=== PATIENT | female | born 1950 | race Asian ===

== ENCOUNTER 2024-12-19 22:43 | Inpatient (IN) | payer MEDICARE ==
[~2024-12-19] VITALS: Ht 162.6 cm; Wt 60.0 kg
[2024-12-19] MEDS ORDERED: IOHEXOL 350 MG/ML 100 ML VIAL ONE (22:54)
[2024-12-19] MEDS ORDERED: SODIUM CHLORIDE 0.9% 100 ML ONE (22:54)
[2024-12-19 23:06] LABS: BASOPHILS % (AUTO) 1.1 % (0.0-2.0); EOSINOPHILS % (AUTO) 4.7 % (1.0-6.0); HEMATOCRIT 31.7 % (36-46); HEMOGLOBIN 10.5 g/dL (12.0-16.0); LYMPHOCYTES # (AUTO) 2.3 K/uL (1.0-4.8); LYMPHOCYTES % (AUTO) 25.9 % (22.0-44.0); MEAN CORPUSCULAR HEMOGLOBIN 31.8 pg (26.0-34.0); MEAN CORPUSCULAR HGB CONC 33.1 G/dL (31.0-37.0); MEAN CORPUSCULAR VOLUME 96 fL (80-100); MONOCYTES # (AUTO) 0.6 K/uL (0.1-1.0); MONOCYTES % (AUTO) 6.2 % (2.0-9.0); NEUTROPHILS # (AUTO) 5.6 K/uL (1.8-7.7); NEUTROPHILS % (AUTO) 62.1 % (40.0-70.0); PLATELET COUNT (AUTO) 251 K/uL (150-450); RED CELL DISTRIBUTION WIDTH 14.4 % (11.5-14.5); WHITE BLOOD COUNT (AUTO) 9.1 K/uL (4.5-11.0)
[2024-12-19 23:10] LABS: CREATININE 3.15 mg/dL (0.60-1.30)
[2024-12-19 23:14] LABS: BILIRUBIN,TOTAL 0.6 mg/dL (0.1-1.0); TOTAL PROTEIN, SERUM 7.3 g/dL (6.4-8.2)
[2024-12-19 23:24] LABS: CALCIUM, TOTAL 8.9 mg/dL (8.8-10.5)
[2024-12-19 23:25] LABS: PROTHROMBIN TIME 10.2 SEC (9.4-11.6)
[2024-12-19 23:27] LABS: ALCOHOL, BLOOD (SERUM) < 3 mg/dL (0-10)
[2024-12-19 23:37] LABS: HEMOGLOBIN A1C 7.7 % (3.8-5.6)
[2024-12-19 23:50] LABS: TROPONIN I-HIGH SENSITIVITY 525 ng/L (<51)
[2024-12-20] VITALS (8 sets, daily range): BP systolic 117–131; BP diastolic 68–90; PULSE 92–111; RESP 18–20; TEMP 97.7–98.8; O2SAT 96–98
[2024-12-20] MEDS ORDERED: ASPIRIN 81 MG CHEWABLE TABLET PO ONE (00:15)
[2024-12-20] MEDS ORDERED: ONDANSETRON HCL 4 MG/2 ML VIAL IVP PRN (00:15)
[2024-12-20] MEDS ORDERED: HYDROCODONE/ACETAMINOPHEN 5-325 MG TABLET PO PRN (00:15)
[2024-12-20] MEDS ORDERED: ZOLPIDEM TARTRATE 5 MG TABLET PO PRN (00:15)
[2024-12-20] MEDS ORDERED: MORPHINE SULFATE 2 MG/ML SYRINGE IVP PRN (00:15)
[2024-12-20] MEDS ORDERED: MAGNESIUM HYDROXIDE SUSPENSION 30 ML UDCUP PO PRN (00:15)
[2024-12-20] MEDS ORDERED: ACETAMINOPHEN 325 MG TABLET PO PRN (00:15)
[2024-12-20 01:39] LABS: TROPONIN I-HIGH SENSITIVITY 459 ng/L (<51)
[2024-12-20] MEDS: HEPARIN SODIUM 25000 UNITS/D5W 250 ML IV PRN (04:22)
[2024-12-20 05:22] LABS: TROPONIN I-HIGH SENSITIVITY 559 ng/L (<51)
[2024-12-20 05:55] LABS: GLUCOMETER DEV NAME(LOC) 5N.1D; GLUCOSE,POINT OF CARE 177 MG/DL (70-110)
[2024-12-20] MEDS ORDERED: HEPARIN SODIUM,PORCINE 5,000 UNITS/ML VIAL SQ SCH (08:00)
[2024-12-20] MEDS: PANTOPRAZOLE SODIUM 40 MG DR TABLET PO SCH (08:45)
[2024-12-20] MEDS: BUMETANIDE 0.25 MG/ML 4 ML VIAL IVP ONE (08:45)
[2024-12-20] MEDS: DOCUSATE SODIUM 100 MG CAPSULE PO SCH (08:45)
[2024-12-20 08:59] LABS: BASOPHILS % (AUTO) 0.9 % (0.0-2.0); EOSINOPHILS % (AUTO) 0.4 % (1.0-6.0); HEMATOCRIT 34.3 % (36-46); HEMOGLOBIN 11.4 g/dL (12.0-16.0); LYMPHOCYTES # (AUTO) 1.7 K/uL (1.0-4.8); LYMPHOCYTES % (AUTO) 18.3 % (22.0-44.0); MEAN CORPUSCULAR HGB CONC 33.1 G/dL (31.0-37.0); MEAN CORPUSCULAR VOLUME 97 fL (80-100); MONOCYTES # (AUTO) 0.6 K/uL (0.1-1.0); MONOCYTES % (AUTO) 6.1 % (2.0-9.0); NEUTROPHILS % (AUTO) 74.3 % (40.0-70.0); PLATELET COUNT (AUTO) 276 K/uL (150-450); RED BLOOD CELL COUNT(AUTO) 3.55 MIL/uL (4.00-5.20); RED CELL DISTRIBUTION WIDTH 14.6 % (11.5-14.5); WHITE BLOOD COUNT (AUTO) 9.5 K/uL (4.5-11.0)
[2024-12-20 09:13] LABS: CALCIUM, TOTAL 9.5 mg/dL (8.8-10.5); CREATININE 2.96 mg/dL (0.60-1.30); POTASSIUM 4.2 mmol/L (3.5-5.1)
[2024-12-20 11:45] LABS: GLUCOMETER DEV NAME(LOC) 5N.1D; GLUCOSE,POINT OF CARE 164 MG/DL (70-110)
[2024-12-20] MEDS: SODIUM BICARBONATE 650 MG TABLET PO SCH (14:27)
[2024-12-20] MEDS: BISACODYL 10 MG RECTAL RECTAL SUPPOSITORY PR PRN (16:09)
[2024-12-20] MEDS: INSULIN LISPRO 100 UNITS/ML SQ PRN (16:12)
[2024-12-20] MEDS ORDERED: DEXTROSE 50%-WATER 25 GM/50 ML SYRINGE IVP PRN (16:15)
[2024-12-20] MEDS: NITROGLYCERIN 0.4 MG SUBLINGUAL TABLET #25 SL PRN (16:18)
[2024-12-20] MEDS: MINERAL OIL 133 ML ENEMA PR ONE (17:02)
[2024-12-20 17:30] LABS: GLUCOMETER DEV NAME(LOC) 5N.1D; GLUCOSE,POINT OF CARE 396 MG/DL (70-110)
[2024-12-20 17:45] LABS: TROPONIN I-HIGH SENSITIVITY 1747 ng/L (<51)
[2024-12-20] MEDS ORDERED: HEPARIN SODIUM,PORCINE 5,000 UNITS/ML VIAL IVP PRN (19:00)
[2024-12-20] MEDS: HEPARIN SODIUM,PORCINE 5,000 UNITS/ML VIAL IVP PRN (19:01)
[2024-12-20] MEDS: ATORVASTATIN CALCIUM 20 MG TABLET PO SCH (21:25)
[2024-12-21 03:31] VITALS: BP 116/69; PULSE 100; RESP 18; TEMP 98.4; O2SAT 96
[2024-12-21 07:17] LABS: BASOPHILS % (AUTO) 0.6 % (0.0-2.0); EOSINOPHILS % (AUTO) 1.1 % (1.0-6.0); HEMATOCRIT 31.9 % (36-46); HEMOGLOBIN 10.6 g/dL (12.0-16.0); LYMPHOCYTES # (AUTO) 2.3 K/uL (1.0-4.8); LYMPHOCYTES % (AUTO) 24.6 % (22.0-44.0); MEAN CORPUSCULAR HEMOGLOBIN 31.8 pg (26.0-34.0); MEAN CORPUSCULAR HGB CONC 33.1 G/dL (31.0-37.0); MEAN CORPUSCULAR VOLUME 96 fL (80-100); MONOCYTES # (AUTO) 0.8 K/uL (0.1-1.0); MONOCYTES % (AUTO) 8.7 % (2.0-9.0); NEUTROPHILS # (AUTO) 5.9 K/uL (1.8-7.7); PLATELET COUNT (AUTO) 234 K/uL (150-450); RED BLOOD CELL COUNT(AUTO) 3.32 MIL/uL (4.00-5.20); RED CELL DISTRIBUTION WIDTH 14.5 % (11.5-14.5); WHITE BLOOD COUNT (AUTO) 9.2 K/uL (4.5-11.0)
[2024-12-21 07:33] VITALS: BP 120/65; PULSE 99; RESP 18; TEMP 98.2; O2SAT 97
[2024-12-21 07:56] LABS: ANION GAP 10 mmol/L (8-16); CALCIUM, TOTAL 8.9 mg/dL (8.8-10.5); CARBON DIOXIDE 23 mmol/L (22-29); CHLORIDE 101 mmol/L (98-107); CHOL/HDL RATIO 1.7 (3.9-5.7); CHOLESTEROL 113 mg/dL (131-200); GLOMERULAR FILTR. RATE CALC 14 mL/min (>60); GLUCOSE,RANDOM 144 mg/dL (70-110); HDL CHOLESTEROL 67 mg/dL (40-60); LDL CHOL (CALC.) 36 mg/dL (0-130); POTASSIUM 4.1 mmol/L (3.5-5.1); SODIUM SERUM 134 mmol/L (136-145); THYROID STIMULATING HORMONE 0.81 uIU/mL (0.36-3.74); TRIGLYCERIDES 52 mg/dL (15-150); UREA NITROGEN, BLOOD 59 mg/dL (7-18)
[2024-12-21 07:59] LABS: TROPONIN I-HIGH SENSITIVITY 3459 ng/L (<51)
[2024-12-21] MEDS: FUROSEMIDE 20 MG TABLET PO SCH (08:44)
[2024-12-21] MEDS: HEPARIN SODIUM 25000 UNITS/D5W 250 ML IV PRN (10:35)
[2024-12-21 10:59] VITALS: BP 120/73; PULSE 110; RESP 20; TEMP 98.4; O2SAT 96
[2024-12-21] MEDS ORDERED: FUROSEMIDE 40 MG/4 ML VIAL ONE (12:25)
[2024-12-21] MEDS ORDERED: FUROSEMIDE 40 MG/4 ML VIAL IVP ONE (12:45)
[2024-12-21 13:03] LABS: ABG A-A DIFF O2 576.4 mmHg (10-20.0); ABG CARBOXYHEMOGLOBIN 0.6 % (0.5-1.5); ABG HCO3 24.3 mmol/L (21.0-28.0); ABG METHEMOGLOBIN 0.7 % (0.0-1.5); ABG OXYGEN CONTENT 19.2 mL/dL (15.0-23.0); ABG OXYGEN SATURATION 98.4 % (94.0-98.0); ABG OXYHEMOGLOBIN 97.1 % (94.0-98.0); ABG PCO2 33 mmHg (32.0-45.0); ABG PH 7.458 (7.350-7.450); ALLEN TEST, BLOOD GAS Positive; O2 DEVICE,BLOOD GAS NON REBREATHER (ROOM AIR); PO2, ARTERIAL BG 103.4 mmHg (83.0-108.0); SITE, BLOOD GAS LFT BRACHIAL; SOURCE, BLOOD GAS ARTERIAL; TEMPERATURE, FAHRENHEIT, BG 98.8 FAHREN (96.0-98.6)
[2024-12-21] MEDS: SODIUM CHLORIDE 0.45% IV ONE (13:07)
[2024-12-21] MEDS: SODIUM BICARBONATE IV ONE (13:07)
[2024-12-21] MEDS ORDERED: NITROGLYCERIN 50 MG/D5% WATER 250 ML ONE (13:53)
[2024-12-21] MEDS ORDERED: VERAPAMIL HCL 2.5 MG/ML 2 ML VIAL ONE (13:53)
[2024-12-21] MEDS ORDERED: SODIUM BICARBONATE 50 MEQ/50 ML VIAL ONE (13:53)
[2024-12-21] MEDS ORDERED: IOHEXOL 300 MG/ML 100 ML VIAL ONE (13:53)
[2024-12-21] MEDS ORDERED: HEPARIN SODIUM 1000 UNITS/NS 1,000 ML ONE (13:53)
[2024-12-21] MEDS ORDERED: LIDOCAINE/PF 1% 30 ML VIAL ONE (13:53)
[2024-12-21] MEDS: FUROSEMIDE 40 MG/4 ML VIAL IVP ONE (13:57)
[2024-12-21] MEDS ORDERED: FentaNYL CITRATE PF 100 MCG/2 ML VIAL ONE (14:39)
[2024-12-21] MEDS ORDERED: MIDAZOLAM HCL 2 MG/2 ML VIAL ONE (14:39)
[2024-12-21] MEDS: FentaNYL CITRATE PF 100 MCG/2 ML VIAL IVP ONE (15:07)
[2024-12-21] MEDS: VERAPAMIL HCL 2.5 MG/ML 2 ML VIAL IARTER ONE (15:07)
[2024-12-21] MEDS: LIDOCAINE 1% 30 ML/SOD BICARB 8.4% 4 ML SQ ONE (15:08)
[2024-12-21] MEDS: IOHEXOL 300 MG/ML 100 ML VIAL ICOR ONE (15:09)
[2024-12-21] MEDS: NITROGLYCERIN/D5W 50 MG/250 ML IV BOTTLE IARTER ONE (15:12)
[2024-12-21] MEDS: HEPARIN SODIUM,PORCINE 1,000 UNITS/ML 10 ML VIAL IARTER ONE (15:14)
[2024-12-21] MEDS: SODIUM CHLORIDE 0.9% 500 ML IV ONE (15:15)
[2024-12-21] MEDS: HEPARIN SODIUM 2,000 UNITS in HEPARIN SODIUM 1000 UNITS/NS 1,000 ML IARTER ONE (15:16)
[2024-12-21 16:06] LABS: GLUCOMETER DEV NAME(LOC) 5N.2C; GLUCOSE,POINT OF CARE 161 MG/DL (70-110)
[2024-12-21 16:06] LABS: GLUCOMETER DEV NAME(LOC) 5N.2C; GLUCOSE,POINT OF CARE 168 MG/DL (70-110)
[2024-12-21 16:45] LABS: GLUCOMETER DEV NAME(LOC) 5S.2D; GLUCOSE,POINT OF CARE 362 MG/DL (70-110)
[2024-12-21] MEDS: BUMETANIDE 0.25 MG/ML 4 ML VIAL IVP SCH (20:17)
[2024-12-21 20:50] VITALS: PULSE 113; RESP 26; O2SAT 97
[2024-12-21 22:30] VITALS: PULSE 119; RESP 28; O2SAT 98
[2024-12-22 06:50] VITALS: PULSE 98; RESP 18; O2SAT 100
[2024-12-22 09:09] LABS: ANION GAP 11 mmol/L (8-16); CALCIUM, TOTAL 9.2 mg/dL (8.8-10.5); CARBON DIOXIDE 23 mmol/L (22-29); CHLORIDE 99 mmol/L (98-107); CREATININE 4.25 mg/dL (0.60-1.30); GLOMERULAR FILTR. RATE CALC 10 mL/min (>60); GLUCOSE,RANDOM 215 mg/dL (70-110); POTASSIUM 4.4 mmol/L (3.5-5.1); SODIUM SERUM 133 mmol/L (136-145); UREA NITROGEN, BLOOD 68 mg/dL (7-18)
[2024-12-22 09:22] LABS: TROPONIN I-HIGH SENSITIVITY 2964 ng/L (<51)
[2024-12-22 10:00] VITALS: PULSE 102; RESP 20; O2SAT 95
[2024-12-22] MEDS: BUMETANIDE 0.25 MG/ML 4 ML VIAL IVP SCH (10:48)
[2024-12-22 11:59] LABS: ABG A-A DIFF O2 199.3 mmHg (10-20.0); ABG BASE EXCESS -4.6 mmol/L (-2.0-3.0); ABG CARBOXYHEMOGLOBIN 0.3 % (0.5-1.5); ABG HCO3 21.4 mmol/L (21.0-28.0); ABG METHEMOGLOBIN 0.8 % (0.0-1.5); ABG OXYGEN CONTENT 13.2 mL/dL (15.0-23.0); ABG OXYGEN SATURATION 89.4 % (94.0-98.0); ABG OXYHEMOGLOBIN 88.4 % (94.0-98.0); ABG PCO2 27 mmHg (32.0-45.0); ABG PH 7.473 (7.350-7.450); ABG TOTAL HEMOGLOBIN 10.6 G/dL (12.0-16.0); ALLEN TEST, BLOOD GAS Positive; O2 DEVICE,BLOOD GAS CANNULA (ROOM AIR); PO2, ARTERIAL BG 55.4 mmHg (83.0-108.0); SITE, BLOOD GAS RT RADIAL; SOURCE, BLOOD GAS ARTERIAL; TEMPERATURE, FAHRENHEIT, BG 98.6 FAHREN (96.0-98.6)
[2024-12-22 13:05] VITALS: BP 117/82; PULSE 111; RESP 24; TEMP 98.4; O2SAT 90
[2024-12-22 13:30] VITALS: PULSE 103; RESP 24; O2SAT 96
[2024-12-22 14:01] LABS: GLUCOMETER DEV NAME(LOC) 5S.2D; GLUCOSE,POINT OF CARE 212 MG/DL (70-110)
[2024-12-22 14:05] VITALS: O2SAT 95
[2024-12-22 16:44] VITALS: BP 119/78; PULSE 106; RESP 22; TEMP 97.5; O2SAT 97
[2024-12-22 19:46] LABS: GLUCOMETER DEV NAME(LOC) 5S.2D; GLUCOSE,POINT OF CARE 212 MG/DL (70-110)
== END 2024-12-22 20:02 | disposition short-term general hospital (02) | DRG 280 ==
LOC: EMS 22:43 → EDH 12-20 00:02 → 5S 12-20 01:35 → ICUN 12-21 16:35 → 5N 12-22 12:40
PROVIDERS: ADMIT Internal Medicine; ATTEND Internal Medicine
PROC: 5A09357 Assistance with Respiratory Ventilation, Less than 24 Consecutive Hours, Continuous Positive Airway Pressure (ICD-10-PCS; principal; 2024-12-21)
PROC: 4A023N7 Measurement of Cardiac Sampling and Pressure, Left Heart, Percutaneous Approach (ICD-10-PCS; 2024-12-21)
PROC: B2111ZZ Fluoroscopy of Multiple Coronary Arteries using Low Osmolar Contrast (ICD-10-PCS; 2024-12-21)
PROC: 5A09357 Assistance with Respiratory Ventilation, Less than 24 Consecutive Hours, Continuous Positive Airway Pressure (ICD-10-PCS; 2024-12-22)
DX: I21.4 Non-ST elevation (NSTEMI) myocardial infarction (principal); I50.23 Acute on chronic systolic (congestive) heart failure; J96.01 Acute respiratory failure with hypoxia; I13.0 Hypertensive heart and chronic kidney disease with heart failure and stage 1 through stage 4 chronic kidney disease, or unspecified chronic kidney disease; G81.90 Hemiplegia, unspecified affecting unspecified side; E87.20 Acidosis, unspecified; N18.5 Chronic kidney disease, stage 5; N17.9 Acute kidney failure, unspecified; D64.9 Anemia, unspecified; D63.1 Anemia in chronic kidney disease; F32.A Depression, unspecified; I08.0 Rheumatic disorders of both mitral and aortic valves; E11.51 Type 2 diabetes mellitus with diabetic peripheral angiopathy without gangrene; E11.22 Type 2 diabetes mellitus with diabetic chronic kidney disease; I69.331 Monoplegia of upper limb following cerebral infarction affecting right dominant side; I65.22 Occlusion and stenosis of left carotid artery; I25.2 Old myocardial infarction; E78.5 Hyperlipidemia, unspecified; E79.0 Hyperuricemia without signs of inflammatory arthritis and tophaceous disease; I25.5 Ischemic cardiomyopathy; I25.10 Atherosclerotic heart disease of native coronary artery without angina pectoris; Z79.899 Other long term (current) drug therapy; Z88.6 Allergy status to analgesic agent; Z82.3 Family history of stroke; Z87.442 Personal history of urinary calculi; Z88.0 Allergy status to penicillin
CPT/HCPCS: 36600; 70496; 70498; 70551; 71045; 71250; 74018; 80048; 80053; 80061; 82805; 82948; 82962; 83036; 83735; 83880; 84443; 84484; 85025; 85610; 85730; 86850; 86900; 86901; 92610; 93005; 93306; 93880; 94660; 99291; G0378; G0480; J1644; J1940; J2250; J3010; J3490; J7050; Q9967; 36415-L1; 36415-TC; 70450; 70450-TC; Z7610